=== PATIENT | male | born 1955 | race Caucasian/White ===

== ENCOUNTER → 2019-12-03 | Outpatient (CLI) | payer SELFPAY ==
--- NOTE | 2019-12-03 18:41 | MR ---
EXAMINATION TYPE: MR shoulder RT wo con DATE OF EXAM: 12/03/2019 COMPARISON: Radiograph 11/19/2019 HISTORY: 64-year-old male with right shoulder pain x 2 years TECHNIQUE: Multiplanar, multisequence imaging of the right shoulder is performed without contrast. FINDINGS: Abnormal intrasubstance signal within the intracapsular portion of the biceps tendon. Severe thickeni ng and inhomogeneous signal at the junction of the intracapsular and extracapsular portions. The extr acapsular portion remains appropriately situated along the bicipital groove and large amount of tenos ynovial fluid is noted. Heterogeneous thickening of the subscapularis tendon. There is a tear of the superior two thirds fibe rs. The inferior third remains intact. Heterogeneous signal within both supraspinatus and infraspinatus tendons. Intrasubstance tearing is present within the posterior supraspinatus tendon fibers along with articul ar sided fraying at the junction of the supraspinatus and infraspinatus tendon fibers. AC joint is intact. No atrophy of the rotator cuff musculature. There is end-stage degenerative change at the glenohumeral joint with atux-rh-liix articulation and b edvin remodeling of both the humeral head and glenoid, mild overall loss of glenoid bone stock and 22 d egrees of glenoid retroversion. Marginal spurring and subchondral cystic changes present. The glenoid labrum is diffusely degenerative and 12. Associated large joint effusion with a large collection along the subcutaneous coracoid recess with m ultiple loose bodies within clustered aggregate dimension of 3.8 x 1.9 cm. No Hill-Sachs deformity or os acromiale. No suspicious bone marrow replacement. IMPRESSION: 1. End-stage glenohumeral joint OA with bony remodeling, mild loss of glenoid bone stock, and 22 degr ees of glenoid retroversion. 2. Tear of the superior two thirds fibers of the subscapularis tendon. Additional interstitial tear o f the intracapsular portion of the long head biceps tendon and severe tendinosis at its transition wi th the extracapsular portion. 3. Supraspinatus and infraspinatus tendinosis with shallow articular sided tearing at the junction of the 2 tendons and some intrasubstance change within the posterior supraspinatus tendon. 4. Large joint effusion continues into the bicipital groove and also the subscapularis recess where a large cluster of loose bodies have an aggregate dimension up to 3.8 x 1.9 cm.
== END | disposition home or self-care (01) ==
LOC: RADMRIMAIN 14:49
PROVIDERS: ATTEND Orthopaedic Surgery
DX: M19.011 Primary osteoarthritis, right shoulder (principal); M85.811 Other specified disorders of bone density and structure, right shoulder; S46.811A Strain of other muscles, fascia and tendons at shoulder and upper arm level, right arm, initial encounter; M25.811 Other specified joint disorders, right shoulder; M25.40 Effusion, unspecified joint; S46.111A Strain of muscle, fascia and tendon of long head of biceps, right arm, initial encounter